=== PATIENT | female | born 1985 | race Two or more races ===

== ENCOUNTER 2024-02-06 02:10 | Emergency (ER) | payer OTHER ==
[~2024-02-06] VITALS: Ht 160 cm; Wt 68.2 kg
[2024-02-06] MEDS ORDERED: cefTRIAXone 1GM/50ML D5W 50 ML IV ONE (04:00)
[2024-02-06] MEDS ORDERED: HUR60 MT (04:06)
[2024-02-06] MEDS ORDERED: IBUP-1456 PO (04:06)
[2024-02-06] MEDS ORDERED: AMOX875T4 PO (04:06)
[2024-02-06] MEDS: CLINDAMYCIN 600MG IV 50 ML IV ONE (05:04)
[2024-02-06] MEDS: KETOROLAC TROMETH 30 MG/ML 1ML VIAL IV ONE (05:48)
[2024-02-06] MEDS: methylPREDNISolone SOD SUCC 125 MG/2 ML VL IV ONE (05:49)
[2024-02-06 06:40] VITALS: BP 153/79; PULSE 95; RESP 18; TEMP 98.8; O2SAT 99
== END 2024-02-06 06:35 | disposition home or self-care (01) ==
LOC: ER 02:10
DX: K04.7 Periapical abscess without sinus (principal); Z79.899 Other long term (current) drug therapy
CPT/HCPCS: 96365; 96375; 99284; J1885; J2919; J3490